=== PATIENT | male | born 1995 | race Caucasian/White ===

== ENCOUNTER 2019-06-29 17:19 | Emergency (ER) | payer SELFPAY ==
[~2019-06-29] VITALS: Ht 172.7 cm; Wt 72.7 kg
[2019-06-29] MEDS ORDERED: PERTUSS(ACELL),DIPH,TET VAC/PF 0.5 ML VIAL IM ONE (18:15)
[2019-06-29] MEDS ORDERED: LIDOCAINE 1% 10 ML VIAL INJ ONE (19:45)
[2019-06-29 20:58] VITALS: BP 120/74
== END 2019-06-29 21:33 | disposition home or self-care (01) ==
LOC: EMS 17:23
DX: S61.211A Laceration without foreign body of left index finger without damage to nail, initial encounter (principal); W26.8XXA Contact with other sharp object(s), not elsewhere classified, initial encounter; Y93.89 Activity, other specified; Y92.89 Other specified places as the place of occurrence of the external cause; Y99.8 Other external cause status
CPT/HCPCS: 12001; 73140; 90471; 90715; 99283; J3490